=== PATIENT | female | born 1980 | race American Indian/Alaskan Native ===

== ENCOUNTER 2017-10-10 00:02 | Emergency (ER) | payer SELFPAY ==
[2017-10-10] MEDS ORDERED: TYLENOL PO ONE (04:36)
--- NOTE | 2017-10-10 04:36 | Emergency Department Report ---
Head Injury w/o Laceration - HPI Chief Complaint: Head Injury Stated Complaint: HEAD INJURY Time Seen by Provider: 10/10/17 04:35 Occurred When: Before Yesterday (4 days ago) Location: Facial (mid forehead) Severity: severe (10/10) Head Inj w/o Lac: Yes Headache (10/10 to a affected side at mid forehead), Yes Swelling (mid forehead), Yes Bruising (mid forehead), No Loss of Consciousness, No Nausea, No Blurred Vision, No Altered Mental Status, No Focal Deficit, No Break in Skin, No Bleeding Other History: This is a 37-year-old female who reports that she was working in her yard and stepped in a hoe and it popped up and hit her in the forehead. She states that she's been having a headache since the front of her head. Pain is 10 out of 10 and he feels bad. Denies any loss of consciousness or fallen. She said this was accidental. Denies any alcohol involvement. She says she gets a swelling around her eyes and to her forehead which has resolved she still has bruising area and mid forehead that is painful. She says she plays ice on the side over the last 4 days and it has improved but she is still having pain and wants to be checked. Immunizations up-to-date. She said that accident was witnessed. Denies any dizziness, nausea or vomiting. Denies any blurred vision. Nothing makes pain better and nothing makes it worse. ED General PMH - Past Medical History General Medical History: diabetes Surgical History: other ( 3) LMP (females 10-50): last week - Family History Significant Family History: diabetes, hypertension - Social History Smoking Status: Never Smoker Alcohol Use: occasionally Drug Use: N ED Neuro ROS - Review of Systems Constitutional: no symptoms reported Eyes (ROS): no symptoms reported Ears, Nose, Mouth, Throat: no symptoms reported Respiratory: no symptoms reported Cardiology: no symptoms reported, other (blood pressure is elevated and patient is asymptomatic. She says she has a history of diabetes with non-hypertension) Gastrointestinal/Abdominal: no symptoms reported Genitourinary: no symptoms reported Musculoskeletal: no symptoms reported Skin: other (bruising to the facial area) Neurological: headache. denies: anxiety, depressed, emotional problems, cognitive dysfunction, numbness, petit mal seizures, tingling, tonic-clonic seizures, unable to move lower ext, unable to move upper ext, weakness Endocrine: no symptoms reported Hematologic/Lymphatic: no symptoms reported Head Injury W/O Lac Exam - Exam General: Vital signs noted. No distress. Alert and acting appropriately. ED Disposition Clinical Impression: Blood pressure elevated without history of HTN Post-traumatic headache, not intractable Qualifiers: Headache chronicity pattern: acute headache Qualified Code(s): G44.319 - Acute post-traumatic headache, not intractable Facial contusion Qualifiers: Encounter type: initial encounter Qualified Code(s): S00.83XA - Contusion of other part of head, initial encounter Disposition: - TO HOME OR SELFCARE Is pt being admited?: No Does the pt Need Aspirin: No Condition: Stable Instructions: Contusion in Adults (ED), Acute Headache (ED) Additional Instructions: Please follow up with a primary care physician as discussed. The referral to neurology if you continue to have headache. Take Tylenol No. 3 if you have in moderate to severe pain but please do not drive or operate heavy machinery while taking this medication. Prescriptions: Acetaminophen/Codeine [Tylenol /Codeine # 3 tab] 1 tab PO Q6H PRN #12 tab PRN Reason: moderate to severe pain Referrals: INEZ JUAREZ MD [Primary Care Provider] - 10/11/17 MARY ANN WATERS MD [Referring] - 10/11/17 Forms: Work/School Release Form(ED) Time of Disposition: 06:42 ED Course Vital Signs 10/10/17 10/10/17 00:01 00:47 Temperature 98.3 F 98.3 F Pulse Rate 109 H 109 H Respiratory 22 18 Rate Blood Pressure 182/106 182/106 O2 Sat by Pulse 100 100 Oximetry Vital Signs 10/10/17 10/10/17 10/10/17 00:01 00:47 06:33 Temperature 98.3 F 98.3 F 98.4 F Pulse Rate 109 H 109 H 74 Respiratory 22 18 17 Rate Blood Pressure 182/106 182/106 Blood Pressure 144/85 [Left] O2 Sat by Pulse 100 100 100 Oximetry - Reevaluation(s) Reevaluation #1: 10/10/17 06:33 Patient given Tylenol 1 g by mouth in emergency room for pain. Blood pressure is much better. ED Medical Decision Making - Radiology Data Radiology results: report reviewed CT scan of the brain/head without contrast shows no evidence of acute stroke or hemorrhage. The ventricular system is appropriate in size and is symmetric. The basal cisterns appears normal. The visualized sinuses are clear. The mastoid air cells are well pneumatized. The calvarium appears intact. No acute abnormality - Medical Decision Making ED course: She is status post accidental injury to the facial area complaining of headache and bruising to the facial area. Physical findings are normal neurological exam and she has minimal bruising to her mid forehead between her eyebrows. Area is tender to palpate. Head exam is normal. I discussed patient with her CT scan shows no abnormality. I discussed with her that she needs to follow up with her primary care physician and if she still continues to have headache that she needs to follow-up with a neurologist. Patient voiced understanding of discharge ejection and treatment plan. She was given Tylenol plain 1 g by mouth and emergency room. Patient discharged home with prescription for Tylenol No. 3
--- NOTE | 2017-10-10 06:20 | Cat Scan Report ---
FINAL REPORT EXAM: CT HEAD/BRAIN WO CON HISTORY: head injury with headache/bruising TECHNIQUE: Routine axial imaging was obtained of the brain without IV contrast. FINDINGS: There is no evidence of acute stroke or hemorrhage. The ventricular system is appropriate in size and is symmetric. The basal cisterns appear normal. The visualized sinuses are clear. The mastoid air cells are well pneumatized. The calvarium appears intact IMPRESSION: Within normal limits
[2017-10-10 06:34] VITALS: BP 144/85
== END 2017-10-10 07:10 | disposition home or self-care (01) ==
LOC: EDSEX 00:02 → ED 00:02
DX: S00.83XA Contusion of other part of head, initial encounter (principal); G44.319 Acute post-traumatic headache, not intractable; R03.0 Elevated blood-pressure reading, without diagnosis of hypertension; E11.9 Type 2 diabetes mellitus without complications; Z88.0 Allergy status to penicillin; W22.8XXA Striking against or struck by other objects, initial encounter; Y93.89 Activity, other specified; Y99.8 Other external cause status; Y92.096 Garden or yard of other non-institutional residence as the place of occurrence of the external cause
CPT/HCPCS: 70450

== ENCOUNTER 2019-08-26 20:23 | Emergency (ER) | payer MEDICAID ==
[2019-08-26] MEDS ORDERED: SODIUM CHLORIDE 0.9% 1000 ML IV SOLN IV ONE (20:59)
[2019-08-26] MEDS ORDERED: VANCOMYCIN 2,000 MG in SODIUM CHLORIDE 0.9% 500 ML 500 ML IV ONE (20:59)
[2019-08-26] MEDS ORDERED: VANCOMYCIN PHARMACY TO DOSE IV SCH (21:00)
--- NOTE | 2019-08-26 21:06 | Emergency Department Report ---
ED Fever HPI - General Chief Complaint: Laceration/Recheck/Suture Stated Complaint: POST C SECTION COMPLICATIONS Time Seen by Provider: 08/26/19 20:59 Source: patient Exam Limitations: no limitations - History of Present Illness Initial Comments: Mrs. Li is a 39 yo female who is 7 days s/p at [facility]. She presents with fever and drainage from wond incision. She had one week appointment today. Wound Vac was removed. She has copious amount of purulent drainage from the wound. She has soaked pads and towels with purulent drainage. She has generalized malaise. THis is patient's fourth . During this she experienced gestational diabetes and pre-ecclampsia. She is followed by [facility] Timing/Duration: this evening Fever Severity/Quality: subjective Associated Symptoms: other (Redness wound drainage) ED Review of Systems ROS: Stated complaint: POST C SECTION COMPLICATIONS Other details as noted in HPI Comment: All other systems reviewed and negative Constitutional: fever, malaise Respiratory: denies: cough Cardiovascular: denies: chest pain Gastrointestinal: denies: abdominal pain Skin: rash, lesions ED Past Medical Hx - Past Medical History Previous Medical History?: Yes Hx Hypertension: Yes Hx Diabetes: Yes Additional medical history: angioedema - Surgical History Additional Surgical History: c-sectionx3. carpal tunnel - Social History Smoking Status: Never Smoker Substance Use Type: Prescribed - Medications Home Medications: Home Medications Medication Instructions Recorded Confirmed Last Taken Type Acetaminophen/Codeine [Tylenol 1 tab PO Q6H PRN #12 tab 10/10/17 Unknown Rx /Codeine # 3 tab] Clindamycin [Clindamycin CAP] 300 mg PO Q8H 10 Days #30 cap 08/26/19 Unknown Rx ED Physical Exam - General Limitations: No Limitations General appearance: alert, in no apparent distress - Head Head exam: Present: atraumatic, normocephalic - Eye Eye exam: Present: normal appearance - ENT ENT exam: Present: mucous membranes moist - Neck Neck exam: Present: normal inspection, lymphadenopathy - Respiratory Respiratory exam: Present: normal lung sounds bilaterally. Absent: respiratory distress, wheezes, rales, rhonchi - Cardiovascular Cardiovascular Exam: Present: normal rhythm, tachycardia, normal heart sounds. Absent: systolic murmur, diastolic murmur, rubs, gallop - GI/Abdominal GI/Abdominal exam: Present: soft, other (lower abdomen eyrthema with wall edema extending to suprapubic region, copious purulence expressed from left lateral portion of incision). Absent: distended, tenderness, guarding, rebound - Extremities Exam Extremities exam: Present: normal inspection - Back Exam Back exam: Present: normal inspection - Neurological Exam Neurological exam: Present: alert, oriented X3 - Psychiatric Psychiatric exam: Present: normal affect, normal mood - Skin Skin exam: Present: erythema ED Course Vital Signs 08/26/19 08/26/19 08/26/19 20:49 22:44 23:08 Temperature 100.4 F H 99.7 F H Pulse Rate 128 H 116 H Respiratory 22 18 Rate Blood Pressure 156/90 127/79 [Left] O2 Sat by Pulse 99 99 Oximetry ED Medical Decision Making - Lab Data Result diagrams: 08/26/19 21:03 08/26/19 21:03 - Medical Decision Making This is a 39-year-old female who is 7 days status post . She has incisional wound infection with purulent drainage. She will likely require the reapplication of wound VAC which was removed today. She is currently not on antibiotics. She received 1 dose of vancomycin in the emergency department. She was discharged with prescription for clindamycin. She will follow-up with her primary integration specialist tomorrow. Labs notable for leukocytosis anemia. Critical care attestation.: If time is entered above; I have spent that time in minutes in the direct care of this critically ill patient, excluding procedure time. ED Disposition Clinical Impression: Incisional infection, Status post Disposition: -01 TO HOME OR SELFCARE Is pt being admited?: No Does the pt Need Aspirin: No Condition: Stable Additional Instructions: Please see your integration specialist tomorrow. You will need reapplication of wound VAC. Prescriptions: Clindamycin [Clindamycin CAP] 300 mg PO Q8H 10 Days #30 cap Referrals: PRIMARY CARE, [Primary Care Provider] - KWADWO
[2019-08-26 21:32] LABS: Hematocrit 26.8 % (30.3-42.9); Hemoglobin 8.4 gm/dl (10.1-14.3); Mean Corpuscular HGB Conc 31 % (30-34); Mean Corpuscular Volume 79 fl (79-97); Platelet Count 425 K/mm3 (140-440); Red Blood Count 3.41 M/mm3 (3.65-5.03); Red Cell Distribution Width 17.1 % (13.2-15.2)
[2019-08-26 21:39] LABS: Alanine Aminotransferase 17 units/L (7-56); Albumin 2.8 g/dL (3.9-5); BUN/Creatinine Ratio 14; Blood Urea Nitrogen 13 mg/dL (7-17); Calcium 8.6 mg/dL (8.4-10.2); Hemolysis Index 14
[2019-08-26] MEDS ORDERED: ACETAMINOPHEN 500 MG TAB PO ONE (21:54)
[2019-08-26] MEDS ORDERED: ACETAMINOPHEN 500 MG TAB ONE (21:54)
[2019-08-26 22:08] LABS: Basophils % (Manual) 0 % (0.0-1.8); Eosinophils % (Manual) 0 % (0.0-4.3); Hypochromasia 1+; Total Cells Counted 100
[2019-08-26] MEDS ORDERED: SODIUM CHLORIDE 0.9% 1000 ML 1,000 ML IV ONE (22:22)
[2019-08-27 00:11] VITALS: BP 138/73
[2019-08-27] MEDS ORDERED: VANCOMYCIN 2,000 MG in SODIUM CHLORIDE 0.9% 500 ML 500 ML IV SCH (09:00)
== END 2019-08-27 00:12 | disposition home or self-care (01) ==
LOC: ED 20:23
DX: O86.89 Other specified puerperal infections (principal); I10 Essential (primary) hypertension; E11.9 Type 2 diabetes mellitus without complications
CPT/HCPCS: 36415; 80053; 82140; 85007; 85025; 87040; 87076; 87116; 87186; 96365; 96366; 99284; J3370; J7030; J7040

== ENCOUNTER 2021-04-13 07:34 | Outpatient (CLI) | payer MEDICAID ==
--- NOTE | 2021-04-13 09:28 | XRay Report ---
CHEST 2 VIEWS INDICATION / CLINICAL INFORMATION: Preoperative evaluation, obesity. COMPARISON: None available. FINDINGS: SUPPORT DEVICES: None. HEART / MEDIASTINUM: No significant abnormality. LUNGS / PLEURA: No significant pulmonary or pleural abnormality. No pneumothorax. ADDITIONAL FINDINGS: No significant additional findings. IMPRESSION: 1. No acute findings. Signer Name: Crescencio Manzo MD Signed: 04/13/2021 9:23 AM Workstation Name: [id number]
--- NOTE | 2021-04-13 10:23 | Fluoroscopy Report ---
Esophagram Indication: Morbid obesity, planned surgery. Technique: Single and double contrast barium technique utilized to evaluate the esophagus. Findings: Initial surface room shop optician radiograph was performed. Small sample of thin barium was swallowed and no ev idence of aspiration was identified. Rapid sequence fluoroscopic evaluation of the cervical esophagus was performed in the lateral and frontal projections. Patient was placed in the LPO position and nilda ble contrast fluoroscopic evaluation of the esophagus was performed. The patient was rotated to the h orizontal position and the esophagus was evaluated with oral contrast. Maneuvers were made to attempt gastroesophageal reflux and hiatal hernia. A barium tablet was swallowed without difficulty or delay in entering the stomach. Swallowing was normal. No mucosal irregularity, mass, mass effect, or critical stenosis. There were no abnormal tertiary c ontractions as seen with dysmotility. No gastroesophageal reflux. No hiatal hernia. Impression: Unremarkable fluoroscopic esophagram study. No evidence of esophageal abnormality. No hiatal hernia o r gastroesophageal reflux. Fluoroscopic time: 2 minutes Number of fluoroscopic images: 28 Signer Name: Crescencio Manoz MD Signed: 04/13/2021 10:18 AM Workstation Name: [id number]
== END 2021-04-13 07:35 | disposition home or self-care (01) ==
LOC: FLUORO 07:34
PROVIDERS: ATTEND Surgery
DX: K21.9 Gastro-esophageal reflux disease without esophagitis (principal); K44.9 Diaphragmatic hernia without obstruction or gangrene; E66.01 Morbid (severe) obesity due to excess calories
CPT/HCPCS: 71046; 74220

== ENCOUNTER → 2021-04-22 | Outpatient (CLI) | payer MEDICAID | END | disposition home or self-care (01) | LOC: SLR 11:00 | PROVIDERS: ATTEND Surgery | DX: G47.30 Sleep apnea, unspecified (principal) | CPT/HCPCS: G0399 ==

== ENCOUNTER 2021-05-25 08:08 | Day surgery (SDC) | payer MEDICAID ==
[~2021-05-25 08:08] MED LIST: SODIUM CHLORIDE 0.9% 1000 ML 1,000 ML IV SCH
--- NOTE | 2021-05-25 09:36 | Discharge Summary ---
Providers - Providers Date of Admission: 05/25/2021 Date of discharge: 05/25/21 Attending physician: EMILEE GRANT MD Primary care physician: CLOTH WORKER Hospitalization Reason for admission: pre-op egd Condition: Good Procedures: egd with bx Hospital course: Pt presented for a pre-op EGD as part of planning for up coming bariatric surgery. Procedure was uneventful and pt recovered well and was discharged to home. Disposition: 01 HOME / SELF CARE / HOMELESS Final Discharge Diagnosis (Prints w/discharge instructions): dyspepsia, morbid obesity Core Measure Documentation - Palliative Care Palliative Care/ Comfort Measures: Not Applicable - Core Measures Any of the following diagnoses?: none Exam - Physical Exam Narrative exam: unchanged from pre-op Plan Activity: no restrictions Diet: low carbohydrate Follow up with: PRIMARY CAREMD [Primary Care Provider] - 7 Days
--- NOTE | 2021-05-25 09:37 | Operative Report ---
Operative Report Operative Report: DATE: 05/25/2021 SURGERY: Upper endoscopy. SURGEON: Suyapa Daly M.D. PROCEDURE: EGD with biopsy PRE OP DX: morbid obesity, GERD POST OP DX: morbid obesity, GERD TYPE OF ANESTHESIA: MAC. ESTIMATED BLOOD LOSS: None. COMPLICATIONS: None. SPECIMENS REMOVED: antral biopsy FINDINGS: 1. Small hiatal hernia. 2. gastritis INDICATIONS:INDICATION FOR PROCEDURE: Patient is a 40-year-old female with a long history of morbid obesity. She is planned to have a weight loss procedure and is here for preoperative planning EGD. PROCEDURE DETAILS: After consent was reviewed, patient was taken back to the operating room where patient was placed in the left lateral decubitus position and a bite block was placed in the mouth. After a time-out was called, MAC anesthesia was initiated. I then passed the endoscope into her oropharynx, into her esophagus, visualized the entire esophagus, which was all within normal limits. Z-line was noted to about 35cm from incisors. I then visualized the stomach and the first portion of the duodenum and there were no abnormalities I could clearly visualize except for antral gastritis. A cold forceps biopsy of the antrum was taken and will be sent to pathology to evaluate for H.pylori. I then retroflexed the scope in the stomach and visualized the hiatus and I could see a small hiatal hernia. I then desufflated the stomach and removed the endoscope. Patient tolerated procedure well and was transferred to recovery room in good and stable condition.
--- NOTE | 2021-05-25 10:33 | Anesthesia Consultation ---
Anesthesia Consult and Med Hx Date of service: 05/25/21 - Airway Anesthetic Teeth Evaluation: Good ROM Head & Neck: Adequate Mental/Hyoid Distance: Adequate Mallampati Class: Class I Intubation Access Assessment: Good - Pulmonary Exam CTA: Yes - Cardiac Exam Cardiac Exam: RRR - Pre-Operative Health Status ASA Pre-Surgery Classification: ASA2 Proposed Anesthetic Plan: MAC - Pulmonary Hx Smoking: No Hx Asthma: No Hx Respiratory Symptoms: No SOB: No COPD: No Home Oxygen Therapy: No Hx Pneumonia: No Hx Sleep Apnea: No - Cardiovascular System Hx Hypertension: Yes Hx Coronary Artery Disease: No Hx Heart Attack/AMI: No - Central Nervous System Hx Neuromuscular Disorder: No - Gastrointestinal Hx Gastroesophageal Reflux Disease: No - Endocrine Hx Renal Disease: No Hx Non-Insulin Dependent Diabetes: Yes Hx Thyroid Disease: No - Hematic Hx Anemia: No Hx Sickle Cell Disease: No - Other Systems Hx Alcohol Use: No Hx Substance Use: No Hx Cancer: No Hx Obesity: Yes - Additional Comments Anesthesia Medical History Comments: No hx of anesthesia complications
--- NOTE | 2021-05-25 10:34 | Anesthesia Day of Surgery ---
Anesthesia Day of Surgery - Day of Surgery Patient Examined: Yes Patient H&P Reviewed: Yes Patient is NPO: Yes
[2021-05-25] MEDS ORDERED: propofoL 200 MG/20 ML VIAL IV ONE ×2 (11:29→11:38)
--- NOTE | 2021-05-25 16:02 | Post Anesthesia Evaluation ---
- Post Anesthesia Evaluation Patient Participated: Yes Airway Patent: Yes Stable Respiratory Function: Yes Nausea/Vomiting: No Temp > 96.8F: Yes Pain Manageable: Yes Adequeate Hydration: Yes Anesthesia Complications: No Block Receding Appropriately: Not Applicable Patient on Ventilator: No
[2021-05-25 20:28] VITALS: BP 124/61
== END 2021-05-25 12:25 | disposition home or self-care (01) ==
LOC: GIO 08:08
PROVIDERS: ATTEND Surgery
DX: E66.01 Morbid (severe) obesity due to excess calories (principal); K21.9 Gastro-esophageal reflux disease without esophagitis; K44.9 Diaphragmatic hernia without obstruction or gangrene; K29.50 Unspecified chronic gastritis without bleeding; K31.89 Other diseases of stomach and duodenum; K30 Functional dyspepsia; I10 Essential (primary) hypertension; E11.9 Type 2 diabetes mellitus without complications; Z79.899 Other long term (current) drug therapy; Z68.43 Body mass index [BMI] 50.0-59.9, adult
CPT/HCPCS: 43239; 82962; 88305; 88342; J2704; J7120

== ENCOUNTER 2021-05-26 12:52 | Outpatient (CLI) | payer MEDICAID ==
--- NOTE | 2021-06-19 01:26 | Pulmonary Function Test ---
DATE OF VISIT: 05/26/2021 PULMONARY FUNCTION TEST SPIROMETRY: FVC 2.72 - 98% of the predicted. FEV1 is 2.24 liters, which is 98% of the predicted. FEV1/FVC ratio is 83. Flow volume loop, FEF 25-75% is 2.55 liters per second, which is 79% of the predicted. MVV is 50% of the predicted. Lung volumes, slow vital capacity 2.94, which is 88% of the predicted. Inspiratory capacity 2.08, which is 111% of the predicted. ERV is 0.86 liters, which is 34% of the predicted. TLC 4.64, which is 99% of the predicted. DLCO is 108% of the predicted. IMPRESSION: Normal pulmonary function test except some decrease in MVV and also decrease in ERV (expiratory reserve volume). TID: [id number] RECEIPT: [id number] RSM/[id number] cc: Suyapa Daly MD
== END 2021-05-26 12:53 | disposition home or self-care (01) ==
LOC: PF 12:52
PROVIDERS: ATTEND Surgery
DX: E66.01 Morbid (severe) obesity due to excess calories (principal); E66.2 Morbid (severe) obesity with alveolar hypoventilation
CPT/HCPCS: 94010; 94726; 94729

== ENCOUNTER 2021-06-07 14:59 | Outpatient (CLI) | payer MEDICAID | END 2021-06-07 15:00 | disposition home or self-care (01) | LOC: LAB 14:59 | PROVIDERS: ATTEND Surgery | DX: Z01.812 Encounter for preprocedural laboratory examination (principal); Z13.29 Encounter for screening for other suspected endocrine disorder; Z13.1 Encounter for screening for diabetes mellitus; Z13.21 Encounter for screening for nutritional disorder | CPT/HCPCS: 36415; 83036 ==